=== PATIENT | male | born 1935 | race Caucasian/White ===

== ENCOUNTER 2016-07-22 13:53 | Day surgery (SDC) | payer MEDICARE, OTHER ==
[~2016-07-22] VITALS: Ht 177.8 cm; Wt 61.2 kg
[~2016-07-22 13:53] MED LIST: ALPR0.5T PO; CLOR3.755 PO; Lactated Ringer's 1,000 ML IV SCH; MULT-1018 PO; OMEP40CA36 PO; RANI150C4 PO; TELM40TA PO
[2016-07-22] MEDS ORDERED: Propofol 10,000 mCg/mL 20 mL Inj ONE (13:54)
[2016-07-22 14:15] VITALS: BP 155/82; PULSE 62; RESP 14; O2SAT 100
[2016-07-22] MEDS ORDERED: ASPI-973 PO (14:18)
[2016-07-22] MEDS ORDERED: Lactated Ringer's 1,000 ML IV SCH (14:48)
--- NOTE | 2016-07-22 14:48 | PCM.HPANE ---
Patient Data Date of Service: Jul 22, 2016 Surgeon Admitting Provider: Attending Provider:Terry Palma MD Primary Care Physician:Aquiles Whitlock MD Other Provider:Ron Villavicencio Anesthesia Reason for Visit Abdominal Pain Of Unknown Cause Ht/WT & BMI Height (Feet): 5 Height (Inches): 10 Weight (Kilograms): 61.24 Body Mass Index 19.00 Allergies Coded Allergies: venlafaxine (Verified Adverse Reaction, Mild, increased anxiety, 07/20/16) Past Anesthesia History Anesthesia History: Denies:: Anesthesia Reactions, Fam Anesthesia Reaction, Fam Malignant Hypertherm, Malignant Hyperthermia MRSA MRSA: No Medications Blood Thinner: Aspirin Last Dose Blood Thinner: Jul 22, 2016 Hypertension Medication: No Home Meds Incl Beta Roel: No Reported Medications Aspirin 81 Mg [id number] Mg PO DAILY Ref 0 07/22/16 Alprazolam (Xanax)0.5 Mg Tablet0.5 Mg PO TID PRN For Anxiety Ref 0 07/20/16 Ranitidine 150 Mg [id number] Mg PO BID Ref 0 07/20/16 Omeprazole 40 Mg Capsule.dr40 Mg PO DAILY Ref 0 07/20/16 Multivitamin (Multi Vitamin Daily)1 Each Tablet1 Each PO DAILY 30 Days Ref 0 07/20/16 Telmisartan (Micardis)40 Mg [id number] Mg PO DAILY 07/20/16 Clorazepate Dipotassium 3.75 Mg Tablet3.75 Mg PO TID 07/20/16 History History of ENT Problems?: No HEENT History: Denies:: Abnormal Airway Difficult Intubation Denture Type: Full- Upper Teeth Condition: Tooth Decay Hx of Heart Problems?: No Cardiovascular History: Positive for:: Hypertension Denies:: Cardiac Surgery Chest Pain Coronary Artery Disease Hx of Respiratory Problem?: Yes Respiratory History: Positive for:: Dyspnea Other Resp Pertinent History: SOB with walking Hx Neurologic Problems?: No Hx of GI Problems?: Yes (abdominal discomfort) Gastrointestinal History: Positive for:: Gastrointestinal Bleeding Hx of Problems?: No HX of Peritoneal Dialysis: No Hx Musculoskeletal Problems?: No Hx of Psycho/Social Problems?: Yes Psycho Social History: Positive for:: Anxiety Hx Surgeries?: Yes (appy, hernia repairs x2, left ankle) Hx Any Other Health Problems?: Yes Hx Alcohol Use: NoHx Substance Use: No Stop/Bang Treated for Sleep Apnea?: No Do You Have a CPAP Machine?: No S-Snoring: Do You Snore Loudly: No T-Tired: feel tired, fatigued: No P-Blood Pressure: treated: No B- Body Mass Index > 35 kg/m2: No N- Neck Large Circumference: No G- Gender Male: Yes VIRGEN Risk Assessment: Low Risk, <3 Yes Risk Assessment Category Category 1A: Patient has history of documented sleep apnea, and HAS NOT received any narcotic, sedative or anesthesia administration during this stay. Category 1B: Patient has history of documented sleep apnea, and HAS received any narcotic , sedative or anesthesia administration during this stay Category 2: Patient has SUSPECTED Obstructive Sleep Apnea, and HAS received any narcotic , sedative or anesthesia administration during this stay. Category 3: Patient has SUSPECTED Obstructive Sleep Apnea and HAS NOT received narcotic, sedative or anesthesia administration during this stay. Category 4: Outpatient in Procedural Areas with known sleep apnea or who screen positive for High Risk via the STOP/BANG questionnaire. Exam Exam Vital Signs Vital Signs Date Time Temp Pulse Resp B/P Pulse Ox O2 Delivery O2 Flow Rate FiO2 07/22/16 14:15 36.7 62 14 155/82 100 Room Air General Appearance: Alert, Oriented X3, Cooperative HEENT/AIRWAY: MP 3, Neck Movement Lungs: Clear to Auscultation, Normal Air Movement Heart: Regular Rate/Rhythm, Normal S1, Normal S2 Meds/Labs/Diagnostics Admission Meds Current Medications Lactated Ringer's (Lr) 1,000 ml @ 120 mls/hr Q8H20M IV Last administered on 14:28; Start 07/22/16 at 05:00; Stop 07/22/16 at 13:28; Status DC Lidocaine HCl (Xylocaine Viscous 2% Soln 15mL) 15 ml STK-MED ONCE .ROUTE Last administered on 07/22/16 14:28; Start 07/22/16 at 14:18; Stop 07/22/16 at 14:22 ; Status DC Plan Impression Patient chart reviewed, patient interviewed and anesthestic plan with risks, benefits, and alternatives discussed, and informed consent obtained. NPO per Anesth. Guidelines: Yes ASA Physical Status: ASA2 Mod Systemic Disease Anesthetic Plan: MAC Bene/Risks/Altern/Consents: Yes HP Complete Prior to Induction: Yes Petr Franco MD Jul 22, 2016 14:48
[2016-07-22] MEDS ORDERED: MetoCLOpramide 5 mg/mL 2 mL Inj IVPUSH PRN (14:50)
[2016-07-22] MEDS ORDERED: Ondansetron 2 mg/mL 2 mL Inj IVPUSH PRN (14:50)
[2016-07-22 15:33] VITALS: BP 134/75; PULSE 53; RESP 14; O2SAT 97
--- NOTE | 2016-07-22 15:33 | PCM.ENDEGD ---
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 Scope introduced esophagus. Esophagus showed normal shiny whitish mucosa consistent with squamous cell component. Z line was intact at 40 cm from the incisors. There was a 2 cm of salmon-colored mucosa above the Z line. 4 quadrant biopsies obtained every 2 cm.Narrowing banding used. No ulcer mass erosion nodule noted. Scope further advanced to the stomach. The antrum showed redness edema consistent with mild gastritis. Biopsies obtained. Cardia fundus body antrum pylorus were all visualized. Retroflexion was done. Stomach was easily inflated and deflatable using air. Scope further events to the distal duodenum. Duodenum revealed normal villous structures with normal appearing folds without any mass ulcer erosion. 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 Patient monitoring Continuous pulse oximetry, cardiac monitoring, blood pressure monitoring, IV access, and oxygen at 2L per nasal cannula. Complications There were no periprocedural complications identified. Post Procedure Plan Post Procedure Recommendations 1. Restrict activities today. 2. Resume normal activities in the morning. 3. Resume medications. 4. GERD behavioral modification: - Avoid fatty, acidic, spicy, large meals - Do not lie down after meals - Do not eat or drink anything for at least 2 1/2 hours before going to bed at night - Discontinue tobacco and alcohol - Decrease or avoid caffeine - Avoid chocolate and mints - Decrease weight - Avoid aspirin and non steroidal anti-inflammatory agents (NSAID) such as Aleve, Advil, Mobic, Naproxen, Ibuprofen, etc 5. Add proton pump inhibitor. Take 30 minutes before 1st meal of the day. 6. Patient informed of normal post procedure side effects as bloating, drowsiness, blood streaking in the stool 7. If gastric biopsy reveal H.pylori, continue with appropriate treatment 8. If small bowel biopsy reveals celiac, continue with appropriate treatment 9. Please don't hesitate to call me with any questions Terry Palma MD Jul 22, 2016 15:33
[2016-07-22 15:42] VITALS: BP 142/69; PULSE 57; RESP 16; O2SAT 99
--- NOTE | 2016-07-22 15:42 | PCM.ANEP1 ---
Post Anesthesia PACU Phase 1 Assessment Date of Service: Jul 22, 2016 Vital Signs Vital Signs Date Time Temp Pulse Resp B/P Pulse Ox O2 Delivery O2 Flow Rate FiO2 07/22/16 15:33 53 14 134/75 97 Room Air 07/22/16 14:15 36.7 62 14 155/82 100 Room Air Anesthetic Administered: MAC Level of Alertness: Awake, talking LEARY's with Equal Strength: Yes Pain: No Nausea or Vomiting: No CV Function & Hydration Stable: Yes Airway Device: Oxygen Delivery: Room Air Lungs: Clear to Auscultation, Normal Air Movement PACU Phase 2 Assessment Complications: No Follow up Care: No Patient Instructions Provided: N/A Petr Franco MD Jul 22, 2016 15:42
[2016-07-22 15:50] VITALS: BP 160/82; PULSE 55; RESP 16; O2SAT 99
[2016-07-22 16:11] LABS: Mean Corpuscular Hemoglobin 31.7 pg (27.0-35.0); Mean Corpuscular Volume 93.1 fL (81-100)
--- NOTE | 2016-07-26 14:09 | PATH ---
SURGICAL PATHOLOGY Attending Physician:Terry Palma M.D. CASE STATUS: Signed Out PATIENT NAME: FAB GOODEN JR PID: [id number] : 1935 DATE COLLECTED:07/22/2016 00:00 SPECIMEN: 1: Gastric, Biopsy 2: Esophagus, Biopsy CLINICAL HISTORY: 1). GASTRIC BIOPSY (TEST FOR H.PYLORI) 2). DISTAL ESOPHAGUS BIOPSY FINAL DIAGNOSIS: 1.GASTRIC BIOPSY: GASTRIC ANTRUM WITH MILD CHRONIC GASTRITIS. Negative for Helicobacter organisms. Negative for intestinal metaplasia. No evidence of dysplasia or malignancy. 2.DISTAL ESOPHAGUS BIOPSY: ESOPHAGEAL SQUAMOUS EPITHELIUM AND GASTRIC GLANDULAR MUCOSA WITH CHRONIC ACTIVE INFLAMMATION. Negative for intestinal metaplasia. No evidence of dysplasia or malignancy. ICD10 K29.70 GROSS DESCRIPTION: The specimens are received in formalin, labeled with the patient's name, and sublabeled as the following: (1) gastric Bx; (2) distal esophagus. (1) The specimen consists of multiple fragments of day-white glistening semi-translucent tissue (0.5 x 0.3 x 0.1 cm in aggregate). Section code: (1A) tissue. Specimen entirely submitted. (2) The specimen consists of multiple fragments of mccracken-white glistening semitranslucent tissue (0.7 x 0.2 x 0.1 cm in aggregate). Section code: (2A) tissue. Specimen is entirely submitted. 07/24/16 JM MICRO DESCRIPTION: See diagnosis. ICD-9 CODES: CPT CODES: 1: 58924 2: 54718 Electronically Signed Out Morgan Jasso MD [facility] Pathology [facility] [address], [place] [address] Technical component performed at [facility], [facility] [address], [place], [address]
== END 2016-07-22 23:59 | disposition home or self-care (01) ==
LOC: END 13:53
PROVIDERS: ATTEND Internal Medicine
DX: K29.50 Unspecified chronic gastritis without bleeding (principal); R10.13 Epigastric pain; I10 Essential (primary) hypertension; F41.8 Other specified anxiety disorders; R73.01 Impaired fasting glucose; E78.5 Hyperlipidemia, unspecified; D69.6 Thrombocytopenia, unspecified; Z79.82 Long term (current) use of aspirin
CPT/HCPCS: 36415; 43239; 85027; 88305; J7120